=== PATIENT | female | born 1970 | race Caucasian/White ===

== ENCOUNTER 2023-03-30 09:03 | Outpatient (CLI) | payer BC, SELFPAY ==
[2023-03-30 10:07] LABS: Free T4 Free Thyroxine 1.19 ng/dL (0.82-1.77); Thyroid Stimulating Hormone 0.45 uIU/mL (0.27-4.20)
[2023-04-01 00:55] LABS: T3 Total 132 ng/dL (76-181)
== END 2023-03-30 09:04 | disposition home or self-care (01) ==
LOC: LAB 09:11
PROVIDERS: Family Provider Family Medicine; PCP Family Medicine; Visit Provider Internal Medicine
DX: D22.9 Melanocytic nevi, unspecified (principal); L57.0 Actinic keratosis; L81.4 Other melanin hyperpigmentation; Z80.8 Family history of malignant neoplasm of other organs or systems; E03.8 Other specified hypothyroidism
CPT/HCPCS: 36415; 84439; 84443; 84480

== ENCOUNTER → 2023-09-18 11:12 | Outpatient (BNVA) | payer BC, SELFPAY | PROVIDERS: Family Provider Family Medicine; PCP Family Medicine; Visit Provider Internal Medicine | DX: R63.4 Abnormal weight loss; E03.8 Other specified hypothyroidism; E06.3 Autoimmune thyroiditis | CPT/HCPCS: 84439; 84443; 84480 ==